=== PATIENT | male | born 1995 ===

== ENCOUNTER 2020-10-31 21:13 | Inpatient (IN) | payer OTHER ==
[~2020-10-31] VITALS: Ht 180.3 cm; Wt 98.8 kg
[~2020-10-31 21:13] MED LIST: CYCL10 PO; HYDACE5 PO; NAPR375 PO
[2020-10-31 21:29] LABS: Hematocrit 42.8 % (37.0-53.0); Hemoglobin 14.5 g/dL (13.5-17.5); Mean Corpuscular HGB 28.4 pg (26.0-34.0); Mean Corpuscular HGB Conc 33.9 g/dL (31.5-36.5); Mean Corpuscular Volume 84 fL (80-100); Platelet Count 329 K/mm3 (150-400); RDW Coefficient Variation 11.9 % (11.7-14.2); RDW Standard Deviation 36.3 fL (35.1-46.3)
[2020-10-31 21:30] LABS: BASOPHILS ABSOLUTE AUTO 0.06 K/mm3 (0.00-0.23); BASOPHILS PERCENT AUTO 0 % (0-2); EOSINOPHILS PERCENT AUTO 0 % (0-6); IMMATURE GRAN PERCENT AUTO 3 % (0-1); LYMPHOCYTES ABSOLUTE AUTO 2.26 K/mm3 (0.84-5.20); LYMPHOCYTES PERCENT AUTO 12 % (21-46); MONOCYTES ABSOLUTE AUTO 0.37 K/mm3 (0.16-1.47); MONOCYTES PERCENT AUTO 2 % (4-13); NEUTROPHILS ABSOLUTE AUTO 15.27 K/mm3 (1.96-9.15); NEUTROPHILS PERCENT AUTO 82 % (41-73); NRBC ABSOLUTE 0.04 K/mm3 (0.00-0.02); NRBC Auto 0.2 /100 WBC (0.0-0.2); White Blood Cell Count 18.56 K/mm3 (4.00-11.30)
[2020-10-31 22:16] LABS: Alanine Aminotransfer (ALT/SGP 137 U/L (12-78); Albumin, Blood 2.4 g/dL (3.4-5.0); Albumin/Globulin Ratio 0.5 (0.8-1.8); Alk Phos 123 U/L (50-136); Anion Gap 16 mmol/L (6-16); Aspartate Aminotrans (AST/SGOT 158 U/L (12-37); Bilirubin, Total 2.1 mg/dL (0.1-1.0); Blood Urea Nitrogen 13 mg/dL (8-24); Bun/Creatinine Ratio 15.1 (12.0-20.0); CO2, Blood 23 mmol/L (21-32); Calcium, Blood 7.6 mg/dL (8.5-10.1); Chloride, Blood 83 mmol/L (98-108); Creatinine, Blood 0.86 mg/dL (0.60-1.20); Globulin, Blood 4.7 g/dL (2.2-4.0); Glomerular Filtration Rate >60 (60-); Glucose, Blood 179 mg/dL (70-99); Potassium, Blood 3.2 mmol/L (3.5-5.5); Sodium, Blood 122 mmol/L (136-145); Total Protein, Blood 7.1 g/dL (6.4-8.2)
[2020-10-31 22:29] LABS: C-REACTIVE PROTEIN, EXT RANGE >19.000 mg/dL (0.000-0.300); CPK Creatine Kinase 2802 U/L (39-308); Creatine Kinase MB Index 0.1 (0.0-4.0); Ferritin, Serum 2746 ng/mL (26-388)
[2020-11-01 00:46] LABS: PCO2 Arterial 40.3 mmHg (35-45); PO2 Arterial 81.8 mmHg (80-100); pH Blood Arterial 7.49 (7.35-7.45)
[2020-11-01 04:03] LABS: Hematocrit 38.6 % (37.0-53.0); Hemoglobin 13.4 g/dL (13.5-17.5); Mean Corpuscular HGB 28.6 pg (26.0-34.0); Mean Corpuscular HGB Conc 34.7 g/dL (31.5-36.5); Mean Corpuscular Volume 83 fL (80-100); Mean Platelet Volume 10.4 fL (9.1-12.4); Platelet Count 189 K/mm3 (150-400); RDW Coefficient Variation 11.9 % (11.7-14.2); RDW Standard Deviation 36.1 fL (35.1-46.3); Red Blood Cell Count 4.68 M/mm3 (4.30-5.90); White Blood Cell Count 12.79 K/mm3 (4.00-11.30)
[2020-11-01 04:19] LABS: Anion Gap 8 mmol/L (6-16); Blood Urea Nitrogen 13 mg/dL (8-24); Bun/Creatinine Ratio 15.6 (12.0-20.0); CO2, Blood 30 mmol/L (21-32); Calcium, Blood 6.8 mg/dL (8.5-10.1); Chloride, Blood 89 mmol/L (98-108); Creatinine, Blood 0.83 mg/dL (0.60-1.20); Glomerular Filtration Rate >60 (60-); Glucose, Blood 139 mg/dL (70-99); Potassium, Blood 3.4 mmol/L (3.5-5.5); Sodium, Blood 127 mmol/L (136-145)
--- NOTE | 2020-11-01 06:04 | NUR ---
END OF SHIFT SUMMARY: PATIENT INTUBATED/SEDATED AND NOW PARALYZED. HE IS MUCH MORE COMFORTABLE WITH THE NIMBEX AND SATS ARE MUCH BETTER. HE REMAINS IN NSR AND BP HAS BEEN STABLE. LEVO ON STANDBY. VENT SETTINGS WERE ADJUSTED THIS MORNING AND HE IS NOW 90%/13 PEEP/26/450 IN SUPINE POSITION. VERSED DRIP, PROPOFOL, AND FENTANYL ELECTRONIC VIDEO GAMES SERVICER ALSO INFUSING. DR. PATTERSON CALLED FOR EVALUATION OF HIGH D-DIMER AND POSSIBLE CT SCAN TODAY. UPDATED OVERNIGHT.
--- NOTE | 2020-11-01 06:16 | NUR ---
TOF HAS BEEN 1/4 TO 2/4 ON -. BIS MONITOR ON AND READING BETWEEN 45-55.
--- NOTE | 2020-11-01 06:55 | NUR ---
SPOKE WITH DR. PATTERSON REGARDING CT SCAN. HE IS NOT WANTING TO PLACE AN ORDER FOR ONE TONIGHT AND "IT WILL GET PASSED TO THE DAY TEAM" TO DECIDE. HE IS HAPPY HE IS ON LOVENOX AT THIS TIME. TO BE RE-EVALUATED TODAY
--- NOTE | 2020-11-01 08:00 | NUR ---
ASSUMED CARE REPORT RECIEVED. PT IS LAYING IN BED INTUBATED, SEDATED, AND PARALYZED. VENT SETTINGS AC 24, TV 450, PEEP 13, FIO2 80%. PT SEDATED WITH PROPOFOL, FENTANYL, AND VERSED. SEE FLOWSHEET FOR TITRATIONS. BIS MONITOR 40-50'S. NIMBEX INFUSING AT 2 MCG/KG/MIN. TOF 4/4. OGT IN PLACE TO LIS. MINIMAL OUTPUT NOTED AT THIS TIME. POWERGLIDE TO YING C/D/I. MOLINA TEMP PROBE IN PLACE WITH YELLOW OUTPUT NOTED. VITAL SIGNS STABLE. WILL CONTINUE TO MONITOR.
[2020-11-01 11:11] LABS: SARS-Cov-2 (COVID-19) PCR, MMC POSITIVE (NEGATIVE)
[2020-11-01 13:47] LABS: PCO2 Arterial 40.5 mmHg (35-45); PO2 Arterial 83.4 mmHg (80-100); pH Blood Arterial 7.53 (7.35-7.45)
--- NOTE | 2020-11-01 14:47 | NUR ---
FAMILY UPDATED PT FATHER KM UPDATED. DISCUSSED MEDICATIONS AND PLAN OF CARE EXTENSIVELY. PT REMAINS STABLE AT THIS TIME. KM STATES HE IS NOT GOING TO COME IN TO VISIT PT UNLESS CONDITION CHANGES FOR THE WORSE. WILL CONTINUE TO MONITOR.
--- NOTE | 2020-11-01 17:17 | NUR ---
SHIFT SUMMARY PT REMAINS INTUBATED, SEDATED, AND PARALYZED. PT PRONED THIS SHIFT. PT REMAINS PRONE. PT SPO2 IMPROVED WITH PRONING. VENT SETTINGS AC 24, TV 470, PEEP 13, FIO2 65%. PICC TO SAM IN PLACE. NIMBEX INFUSING AT 2 MCG/KG/MIN. TOF 4/4. PT REMAINS SEDATED WITH PROPOFOL AND FENTANYL TELETYPE MECHANIC. BIS HAS REMAINED 40-60 THIS SHIFT. OGT REMAINS IN PLACE TO LIS WITH RUST COLORED OUTPUT NOTED THIS SHIFT. MOLINA TEMP PROBE IN PLACE WITH OBDULIA URINE OUTPUT THIS SHIFT. UPDATED MULTIPLE FAMILY MEMBERS VIA PHONE. VITAL SIGNS STABLE AT THIS TIME. WILL CONTINUE TO MONITOR AND REPORT OFF TO ONCOMING RN.
--- NOTE | 2020-11-01 19:15 | NUR ---
REPORT RECEIVED-CARE ASSUME-GTTS AND VITALS NOTED ON FLOWSHET. PT IN PRONE POSITION. PARALYZE WITH NIMBEX. CONTINUE CARE AND ASSESSMENT.
--- NOTE | 2020-11-01 20:50 | NUR ---
FUALL ASSESSMENT NOTED IN FLOWSHEET,
--- NOTE | 2020-11-01 21:51 | NUR ---
PT'S CALLED- UPDATE GIVEN.
--- NOTE | 2020-11-02 00:40 | NUR ---
ASSESS FULL ASSESSMENT-NO CHANGES AT THIS TIME-CONTINUE GTTS-CONTINUE PRONE-CONTINUE VENT-CONTINUE ASSESSMENTS AND CARE.
[2020-11-02 04:15] LABS: Base Excess Venous 10.2 mmol/L; Bicarbonate Venous 32.6 mmol/L (24.0-30.0); PCO2 Venous 41.2 mmHg (38-42); PO2 Venous 41.3 mmHg (38-42); pH Blood Venous 7.51 (7.34-7.37)
[2020-11-02 04:17] LABS: Hematocrit 37.3 % (37.0-53.0); Hemoglobin 13.2 g/dL (13.5-17.5); Mean Corpuscular HGB Conc 35.4 g/dL (31.5-36.5); Mean Corpuscular Volume 85 fL (80-100); Mean Platelet Volume 11.3 fL (9.1-12.4); Platelet Count 258 K/mm3 (150-400); RDW Coefficient Variation 12.3 % (11.7-14.2); RDW Standard Deviation 37.8 fL (35.1-46.3)
[2020-11-02 04:19] LABS: BASOPHILS ABSOLUTE AUTO 0.02 K/mm3 (0.00-0.23); BASOPHILS PERCENT AUTO 0 % (0-2); EOSINOPHILS PERCENT AUTO 0 % (0-6); IMMATURE GRAN ABSOLUTE AUTO 0.12 K/mm3 (0.00-0.10); IMMATURE GRAN PERCENT AUTO 1 % (0-1); LYMPHOCYTES ABSOLUTE AUTO 0.55 K/mm3 (0.84-5.20); LYMPHOCYTES PERCENT AUTO 4 % (21-46); MONOCYTES ABSOLUTE AUTO 0.15 K/mm3 (0.16-1.47); MONOCYTES PERCENT AUTO 1 % (4-13); NEUTROPHILS ABSOLUTE AUTO 12.34 K/mm3 (1.96-9.15); NEUTROPHILS PERCENT AUTO 94 % (41-73); NRBC ABSOLUTE 0.02 K/mm3 (0.00-0.02); NRBC Auto 0.2 /100 WBC (0.0-0.2); White Blood Cell Count 13.18 K/mm3 (4.00-11.30)
[2020-11-02 05:05] LABS: Alanine Aminotransfer (ALT/SGP 73 U/L (12-78); Albumin, Blood 1.7 g/dL (3.4-5.0); Albumin/Globulin Ratio 0.4 (0.8-1.8); Alk Phos 77 U/L (50-136); Anion Gap 7 mmol/L (6-16); Aspartate Aminotrans (AST/SGOT 54 U/L (12-37); Bilirubin, Total 2.6 mg/dL (0.1-1.0); Blood Urea Nitrogen 14 mg/dL (8-24); Bun/Creatinine Ratio 20.8 (12.0-20.0); CO2, Blood 30 mmol/L (21-32); Calcium, Blood 6.5 mg/dL (8.5-10.1); Chloride, Blood 92 mmol/L (98-108); Creatinine, Blood 0.67 mg/dL (0.60-1.20); Globulin, Blood 4.1 g/dL (2.2-4.0); Glomerular Filtration Rate >60 (60-); Glucose, Blood 137 mg/dL (70-99); Potassium, Blood 3.6 mmol/L (3.5-5.5); Sodium, Blood 129 mmol/L (136-145); Total Protein, Blood 5.8 g/dL (6.4-8.2)
--- NOTE | 2020-11-02 06:29 | NUR ---
END OF SHIFT NOTE GTTS AND VITALS NOTED IN FLOWSHEET. PT UNPRONED AT 0400. REMAINS ON VENT-SEDATED AND PARALYZED. TO4 IS 2 OUT OF 4. BIS 40-60. VENT RATE 24/470/PEEP13/65%. CALLED X 2 OVERNIGHT-UPDATED OF NO CHANGES OVERNIGHT-PT UNPRONED-REMAINS ON CURRENT CARE PLAN. CONTINUE ASSESSMENTS AND CARE TILL REPORT OFF TO ONCOMING SHIFT.
--- NOTE | 2020-11-02 10:40 | NUR ---
CARE ASSUMED ASSESSMENTS COMPLETED, PT REMAINS SEDATED WITH PROPOFOL 50MCG AND FENTANYL GTT 50MCG, PARALYZED WITH NIMBEX 2MCG. TOF 2/4, BIS 50'S. VENT SETTINGS AC 24, Vt 470, PEEP 13, FIO2 65%, SPO2 MID 90'S, PEAK PRESSURE 29. LS CLEAR, DIMINISHED IN R BASE, NO SECRETIONS FROM ETT AT THIS TIME. HR SR 80'S, VSS. OGT TO LIWS, AWAITING TF ORDERS FROM DIETITIAN. AM CARES COMPLETED, PT REPOSITIONED, WILL UPDATE .
--- NOTE | 2020-11-02 14:05 | NUR ---
UPDATE PT PRONED AT 1400, TOLERATED WELL. NO CHANGES TO VENT SETTINGS OR DRIP RATES, SPO2 90%, LS CLEAR, HR 80'S SINUS. WILL CONTINUE TO MONITOR. UPDATED.
--- NOTE | 2020-11-02 18:36 | NUR ---
END OF SHIFT PT PRONED AT 1400, PLAN TO LEAVE PRONE FOR 16 HOURS. VENT AND DRIP SETTINGS UNCHANGED, NO SEDATION VACATION TODAY D/T PARALYTIC THERAPY. LS WITH EXPIRATORY WHEEZES, ETT SECRETIONS INCREASED THIS EVENING TO SMALL POON. LARGE AMOUNT OF FOUL SMELLING NASAL DRAINAGE PRESENT TONIGHT, ENRIQUEZ IN COLOR. HR REMAINS SINUS, VSS EXCEPT FOR LOW GRADE TEMP TODAY 99-100. GOOD URINE OUTPUT, NO BM. FAMILY UPDATED MULTIPLE TIMES TODAY. REPORT TO ONCOMING SHIFT.
--- NOTE | 2020-11-02 19:20 | NUR ---
REPORT RECEIVED-CARE ASSUMED GTTS AND VITALS NOTED O FLOWSHEET. PT PRONE POSITION, ON VENT, SEATED AND PARALYZED. CONTINUE ASSESSMENT-FULL ASSESSMENT IN FLOW SHEET.
--- NOTE | 2020-11-03 00:48 | NUR ---
ASSESS PT MOVING LEG, SLIGHTLY. BIS 70. TOF 4OUT OF 4. HR INCREASED TO 125. SATS DECREASED TO 88% , PT BREATHING OVER VENT BY 1.-CALL RT TO ROOM AND 2END RN. INCREASED FIO2S. INCREASED SEDATION AND PARALYTIC. CONTINUE ASSESSMENT. 0054-BIS 56, HR DECREASED TO 100, SATS 93%, PT NOT MOVING, NO COUGH, NO GAG, NOT BREATHING OVER VENT.
--- NOTE | 2020-11-03 01:15 | NUR ---
ASSESS IMPROVED BIS 47, TO4 2 OUT OF 4, NO MVT. HR DECREASED-NO SR 80'S-90. CONTINUE ASSESSMENTS AND CARE.
--- NOTE | 2020-11-03 02:08 | NUR ---
ASSESS INCREASED HR 120, INCREASED BP. DISCUSSED WITH CHARGE N-DECISION TO UNPRONE-REASSESS.
--- NOTE | 2020-11-03 02:27 | NUR ---
HR CONTINUES IN LOW TEENS, SATS 89-90%, BP 145/83 MAP 100. PT HAS BEEN UNPRONED. PUSH FENT PER MAR. REASSESS.
--- NOTE | 2020-11-03 02:50 | NUR ---
MD NOTIFICATION NOTIFIED DR. REES-PT INCREASED HR, PEARL, DECREASED SATS. FENT PUSHES, IMPROVED PT, THEN INCREASED AGAIN, UNPRONED PT, FENT PUSH, IMROVED VITALS.MD ORDER INCREASE CHANGE MANAGEMENT ADMINISTRATOR RATE, ATIVAN PUSHES PRN FOR AGGITATION. RASH- PLEASE NOTE IF RASH INCREASES WITH NEXT DOSE OF REMDESIVIR. CONTINUE ASSESSMENTS AND CARE.
[2020-11-03 03:37] LABS: BASOPHILS ABSOLUTE AUTO 0.02 K/mm3 (0.00-0.23); BASOPHILS PERCENT AUTO 0 % (0-2); EOSINOPHILS ABSOLUTE AUTO 0.07 K/mm3 (0.00-0.68); EOSINOPHILS PERCENT AUTO 1 % (0-6); Hematocrit 42.2 % (37.0-53.0); Hemoglobin 13.8 g/dL (13.5-17.5); IMMATURE GRAN ABSOLUTE AUTO 0.17 K/mm3 (0.00-0.10); IMMATURE GRAN PERCENT AUTO 1 % (0-1); LYMPHOCYTES ABSOLUTE AUTO 0.94 K/mm3 (0.84-5.20); LYMPHOCYTES PERCENT AUTO 7 % (21-46); MONOCYTES ABSOLUTE AUTO 0.19 K/mm3 (0.16-1.47); MONOCYTES PERCENT AUTO 2 % (4-13); Mean Corpuscular HGB 28.8 pg (26.0-34.0); Mean Corpuscular HGB Conc 32.7 g/dL (31.5-36.5); Mean Corpuscular Volume 88 fL (80-100); Mean Platelet Volume 10.8 fL (9.1-12.4); NEUTROPHILS ABSOLUTE AUTO 11.43 K/mm3 (1.96-9.15); NEUTROPHILS PERCENT AUTO 89 % (41-73); Platelet Count 319 K/mm3 (150-400); RDW Coefficient Variation 12.9 % (11.7-14.2); RDW Standard Deviation 41.1 fL (35.1-46.3); Red Blood Cell Count 4.79 M/mm3 (4.30-5.90); White Blood Cell Count 12.82 K/mm3 (4.00-11.30)
[2020-11-03 03:53] LABS: Anion Gap 6 mmol/L (6-16); Blood Urea Nitrogen 16 mg/dL (8-24); Bun/Creatinine Ratio 22.2 (12.0-20.0); CO2, Blood 34 mmol/L (21-32); Calcium, Blood 7.2 mg/dL (8.5-10.1); Chloride, Blood 96 mmol/L (98-108); Creatinine, Blood 0.72 mg/dL (0.60-1.20); Glomerular Filtration Rate >60 (60-); Glucose, Blood 107 mg/dL (70-99); Magnesium, Blood 3.2 mg/dL (1.6-2.4); Phosphorus, Blood 3.5 mg/dL (2.5-4.9); Sodium, Blood 136 mmol/L (136-145)
--- NOTE | 2020-11-03 04:31 | NUR ---
INCREASED TEMP-CHANGED PROBE FROM MOLINA TO RECTAL. REMAINS INCREASE. -FAN TO ROOM. LICENSED CHEMICAL SPRAY TECHNICIAN CALLING MD FOR TYLENOL.
--- NOTE | 2020-11-03 04:33 | NUR ---
INCREASED HR, TEMP, ATIVAN GIVEN PER MD ORDER. CURRENTLY-TO4 2 OUT OF 4 ON NIMBEX OF 2.
--- NOTE | 2020-11-03 06:44 | NUR ---
UPDATE T MAX 102-ICE TO GROIN AND ARMPITS, FAN ON, NO BLANKETS, TEMP DECREASING SLOWLY. BP LOW-LEVOPHED STARTED-SEE FLOWSHEET FOR GTTS/RATES, AND VITALS.
[2020-11-03 10:49] LABS: PCO2 Arterial 47.9 mmHg (35-45); PO2 Arterial 56.8 mmHg (80-100); pH Blood Arterial 7.44 (7.35-7.45)
--- NOTE | 2020-11-03 11:11 | NUR ---
CARE ASSUMED ASSESSMENTS COMPLETED, PT INTUBATED, SEDATED, AND PARALYZED. AC 24, Vt 470, PEEP 13, FIO2 100%, SPO2 LOW 90'S. SCANT ETT SECRETIONS, LS CLEAR, PEAK PRESSURE 30'S. PROPOFOL 50MCG, FENTANYL 100MCG/HR, LEVOPHED 2MCG, NIMBEX 2MCG, TITRATING MEDICATIONS TO EFFECT. BIS 40'S, TOF 4/4, PT MOVING LE'S, NIMBEX INCREASED TO 2.5 WITH GOOD RESULT, TOF NOW 3/4. ETT ADVANCED 1.5CM BY RT PER DR. REES, PEEP INCREASED TO 16. PT THEN PRONED AT 0945, SPO2 DECREASED TO 86-90 AFTER REPOSITIONING DESPITE SUCTIONING. AT BEDSIDE, ADJUSTED VENT SETTINGS, PEEP NOW 18 WITH NO CHANGE IN SPO2. ABG DRAWN, PT REPOSITIONED SUPINE. RT REMAINS AT BEDSIDE TO ADJUST VENT, SPO2 87-90%. ECHO IN PROGRESS. DR. REES SPEAKING WITH [facility] RE: ECMO.
--- NOTE | 2020-11-03 12:53 | NUR ---
UPDATE PT REMAINS SUPINE, VENT CHANGES MADE BY RT, CURRENTLY AC 24, PS 15, PEEP 20, FIO2 100%, I:E 1.45:1. SPO2 MID 90'S, PEAK PRESSURE 38. NOON REPOSITION HELD TO ALLOW PT TO REST. LEVOPHED 1MCG, PROPOFOL 50MCG, FENTANYL 100MCG, NIMBEX 2.5 MCG. BIS 40-50'S, TOF 3/4.
--- NOTE | 2020-11-03 14:40 | NUR ---
Echocardiogram completed.
--- NOTE | 2020-11-03 14:54 | NUR ---
UPDATE - ECMO PT ACCEPTED AT [facility] IN [place] FOR ECMO, AWAITING TRANSPORT DETAILS, NO ETA AT THIS TIME.
--- NOTE | 2020-11-03 17:24 | NUR ---
PICC AND ETT ADJUSTMENT PICC RETRACTED TO 4CM OUT PER DR. REES, ETT ADVANCED TO 28CM KYLE BY RT.
--- NOTE | 2020-11-03 18:40 | NUR ---
END OF SHIFT PT HAS REMAINED STABLE SINCE VENT SETTINGS CHANGED THIS AFTERNOON, TOLERATED REPOSITIONING WELL. VENT AC 24, PC 15, PEEP 20, FIO2 100%, SPO2 97%, RR 24, PEAK PRESSURE 36. LS COARSE IN L BASE, SCANT ETT SECRETIONS. HR 90'S SINUS, BP STABLE WITH LEVO 2MCG. PROPOFOL 50MCG, FENTANYL 100MCG, NIMBEX 2.5MCG. TOF 2-3/4, BIS SCORE 49. PT HAD LOW GRADE FEVER T/O SHIFT 99-100, TREATED WITH COOLING MEASURES ONLY WITH SUCCESS. TF INFUSING AT GOAL, RESIDUALS LOW. MOLINA WITH TEA COLORED URINE, PT SLIGHTLY EDEMATOUS IN EXTREMS, EXTREMS ELEVATED. PT'S , FATHER, AND OTHER FAMILY MEMBERS IN TO VISIT TODAY IN PREPARATION FOR TRANSFER TO [place] FOR ECMO. REMAINS AT BEDSIDE AT THIS TIME, REPORT GIVEN TO JEMIMA GONZALEZ AT [facility]. AWAITING [facility] FOR TRANSPORT.
--- NOTE | 2020-11-03 22:04 | NUR ---
PT LEFT ROOM @ 21:45. PT TO BE FLOWN TO [place] FOR ECMO. ALL DRIPS WERE CONFIRMED AT BEDSIDE WITH [facility]. VSS. REPORT GIVEN TO [facility], JEMIMA GONZALEZ IN UNIT [facility]MA. AT BEDSIDE TO WITNESS TRANSFER TO [facility], SHE WILL FOLLOW BY GROUND. ASSESSMENT IS CHARTED. IT HAS BEEN A PLEASURE TAKING CARE OF THIS PATIENT.
== END 2020-11-03 22:16 | disposition short-term general hospital (02) | DRG 208 ==
LOC: ER 21:13 → ICUW 22:21 → ER 11-01 00:20 → ICUW 11-01 00:38
PROVIDERS: Emergency Medicine; Family Medicine; Internal Medicine Critical Care Medicine; ADMIT Internal Medicine
PROC: 5A09357 Assistance with Respiratory Ventilation, Less than 24 Consecutive Hours, Continuous Positive Airway Pressure (ICD-10-PCS; principal; 2020-10-31)
PROC: 5A1945Z Respiratory Ventilation, 24-96 Consecutive Hours (ICD-10-PCS; 2020-10-31)
PROC: 0BH18EZ Insertion of Endotracheal Airway into Trachea, Via Natural or Artificial Opening Endoscopic (ICD-10-PCS; 2020-10-31)
PROC: 3E0333Z Introduction of Anti-inflammatory into Peripheral Vein, Percutaneous Approach (ICD-10-PCS; 2020-10-31)
PROC: 3E033XZ Introduction of Vasopressor into Peripheral Vein, Percutaneous Approach (ICD-10-PCS; 2020-10-31)
PROC: XW033E5 Introduction of Remdesivir Anti-infective into Peripheral Vein, Percutaneous Approach, New Technology Group 5 (ICD-10-PCS; 2020-11-02)
PROC: 02HV33Z Insertion of Infusion Device into Superior Vena Cava, Percutaneous Approach (ICD-10-PCS; 2020-11-02)
DX: U07.1 COVID-19 (principal); J12.82 Pneumonia due to coronavirus disease 2019; J96.01 Acute respiratory failure with hypoxia; E87.1 Hypo-osmolality and hyponatremia; M62.82 Rhabdomyolysis; F32.9 Major depressive disorder, single episode, unspecified; L27.0 Generalized skin eruption due to drugs and medicaments taken internally; T37.5X5A Adverse effect of antiviral drugs, initial encounter; E87.6 Hypokalemia; R74.01 Elevation of levels of liver transaminase levels; I95.9 Hypotension, unspecified; J98.2 Interstitial emphysema; J01.90 Acute sinusitis, unspecified
CPT/HCPCS: 31500; 36415; 36569; 36600; 51702; 71045; 71260; 80048; 80053; 82330; 82550; 82553; 82728; 82803; 82947; 83735; 84100; 84145; 85025; 85027; 85379; 86140; 87040; 87070; 87077; 87186; 93005; 93010; 93306; 94002; 94003; 94640; 94660; 96374-59; 99285-25; A9270; C1751; J0330; J0610; J0696; J1100; J1650; J1940; J2060; J2250; J2405; J2704; J3010; J3480; J7030; J7040; J7050; J7060; Q0249; Q9967; U0004